=== PATIENT | male | born 1950 | race Caucasian/White ===

== ENCOUNTER 2017-01-11 23:42 | Emergency (ER) ==
--- NOTE | 2017-01-12 00:39 | PROVIDER DOCUMENTATION ---
HPI-General Adult - General Chief Complaint: Abdominal Pain Stated Complaint: AND PAIN Time Seen by Provider: 01/12/17 00:20 Source: patient Allergies/Adverse Reactions: Patient Allergies Allergy/AdvReac Type Severity Reaction Status Date / Time adhesive tape Allergy ITCHING Verified 01/12/17 01:06 Home Medications: Home Medication List Medication Instructions Recorded Confirmed Last Taken Type Ondansetron [Zofran] 4 mg PO Q6H PRN PRN #20 tablet 01/12/17 Unknown Rx Pantoprazole Sodium [Protonix] 40 mg PO DAILY #20 tablet. 01/12/17 Unknown Rx Tramadol [Ultram] 50 mg PO Q8HR #12 tablet 01/12/17 Unknown Rx - History of Present Illness -Gen Adult Nature of Presenting Problems: Pt. is 66 yom that presents with c/o epigastric pain that radiates to his RUQ. Pt. reports he was asleep and was awakened by the pain. Pt. states he has no N/V /D or fever. Pt. reports the pain has moved since his arrival to the ED more to the right side. Pt. reports he still has his GB. Pt. reports he is a daily drinker. Pt. also reports a Hx of SBO. Location of Pain/Injury: reports: abdomen. denies: head, face, mouth, neck, chest, upper extremity, hand(s), back, pelvis, genitalia, lower extremity, feet , upper body, lower body, generalized Pain Radiation: reports: epigastric, RUQ Quality of Pain: reports: aching. denies: burning, cramping, dull, fullness, indigestion, pressure, sharp, stabbing, tearing, throbbing, tightness Severity: reports: moderate. denies: mild, severe Onset/Duration: reports: abrupt, this evening Timing: reports: still present. denies: improving, gone now, resolved prior to arrival, intermittent, constant, changing over time, getting worse Context/Activities at Onset: reports: sleep. denies: recent emotional stress, recent physical stress, recent trauma history, possible bad food, cold exposure , out of country travel Modifying Factors: improves with: nothing Associated Symptoms: reports: other (Epigastric pain). denies: anxiety, arm pain, back/neck pain, chest pain, constipation, cough, diaphoresis, diarrhea, dizziness, EENT symptoms, fatigue, fever/chills, genitourinary problems, headaches, heartburn, joint pain, loss of appetite, malaise, muscle aches, sinus congestion/drainage, nausea, rash, seizure, shortness of breath, sensory/ motor loss, pain with inspiration, swelling/mass in abdomen, syncope, vomiting, weakness, trouble walking Similar Symptoms Previously?: No Recently seen or treated by another doctor?: No Review of Systems - Adult - REVIEW OF SYSTEMS - ADULT Constitutional: reports: see HPI. denies: chills, fever, fatique Eyes: reports: see HPI. denies: discharge, blurred vision, double vision Ears, Nose, Mouth & Throat: reports: see HPI. denies: ear pain, hearing loss, nose pain, loose teeth, mouth/dental pain, throat pain, throat swelling Cardiovascular: reports: see HPI. denies: chest pain, heart murmur, orthopnea, palpitations, syncope Respiratory: reports: see HPI. denies: cough, dyspnea on exertion, pleurisy, shortness of breath, wheezing Gastrointestinal: reports: see HPI, abdominal pain. denies: hematemesis, constipation, difficulty swallowing, frequent heartburn, nausea, rectal bleeding , vomiting Genitourinary: reports: see HPI. denies: dysuria, hematuria, incontinence, urgency Musculoskeletal: reports: see HPI. denies: bone pain, back pain, joint pain, muscle aches, neck pain Integumentary: reports: see HPI. denies: hives, itching, rash, skin thickening Neurological: reports: see HPI. denies: ataxia, headache/migraines, numbness, seizure, tremors Psychiatric: reports: see HPI. denies: anxiety, depression, emotional problems , insomnia, panic attacks, suicidal thoughts Past History - Adult - PAST MEDICAL HISTORY-ADULT Review of Records: reports: Old Records Reviewed, Nursing Assessment Review, Medications Reviewed, Social history reviewed & non-contributory. - IMMUNIZATION STATUS Childhood Immunizations: See Nurse Assessment Flu Vaccine: See Nurse Assessment - FAMILY HISTORY Family History: reviewed, not pertinent - SOCIAL HISTORY Smoking: non-smoker Substance Use: alcohol Alcohol Use Frequency: every day Physical Exam-General - PHYSICAL EXAM-ADULT Initial Vital Signs Reviewed: Yes - CONSTITUTIONAL General Appearance: alert, moderate distress, thin. negative: obese, anxious, lethargic, slow to respond, obtunded, combative - EYES Eyes: PERRL/EOMI, pink conjunctivae. negative: conjuctival exudate, scleral icterus, subconjunctival hemorrhage - HEAD, EARS, NOSE, MOUTH & THROAT HENMT: normocephalic/atraumatic, moist mucous membranes. negative: angioedema, frontal tenderness, maxillary tenderness - NECK Neck: non-tender, full range of motion, supple, normal inspection. negative: lymphadenopathy, trachial deviation, thyromegaly - RESPIRATORY Respiratory: lungs clear, normal breath sounds. negative: crackles, rales, rhonchi, stridor, wheezing - CARDIOVASCULAR Cardiovascular: normal peripheral pulses, regular rate, rhythm, no edema, no JVD , no murmur. negative: extra beats, friction rub, irregularly irregular - CHEST (BREASTS) Chest/Breast: deferred - GASTROINTESTINAL (ABDOMEN) Abdominal Exam: normal bowel sounds, distended, tenderness, Hendrickson's sign ( Positive on the right side). negative: guarding, rigid, rebound, hernia, mass, hepatomegaly, spleenomegaly - GENITOURINARY Male Genitalia: deferred Rectal Exam: deferred Hemoccult Exam: deferred - LYMPHATIC Lymphatic: no adenopathy. negative: axilla node tender, cervical node tenderness - MUSCULOSKELETAL Back Exam: normal inspection, no CVA tenderness, no vertebral tenderness. negative: ecchymosis, swelling, vertebral tenderness Extremity: normal range of motion, non-tender, normal gait, normal inspection. negative: deformity, erythema, inflammation, swelling, tenderness Peripheral Pulses: radial (R): 2+, radial (L): 2+ - SKIN Integumentary: normal color, normal turgor, warm/dry. negative: cyanosis, diaphoresis, ecchymosis, erythema, jaundice, mottled, pallor, petechiae, purpura , rash, swelling, tenderness - NEUROLOGIC Neurologic: grossly normal, no motor/sensory deficits. negative: aphasia, facial droop, focal weakness, motor weakness, sensory deficit - PSYCHIATRIC Psych/Mental Status: normal mood/affect, normal thought content, normal thought process, oriented x 3. negative: anxious, paranoid, tearful Progress - PLAN OF CARE/RESULTS Progress/Plan/Lab Results: Discussed patient with Dr. Vyas. Discussed results and plan of care with patient. Patient agrees with plan and verbalizes understanding. Vital Signs Temp Pulse Resp BP Pulse Ox 01/12/17 01:48 97.6 F 72 20 144/92 97 01/11/17 23:44 98.4 F 82 16 154/85 99 adhesive tape Allergy (Verified 01/12/17 01:06) ITCHING No Home Medications 01/12/17 Dietary Diet NPO Start Sat Jan 12 2344 I&O 01/10/17 01/11/17 01/12/17 06:59 06:59 06:59 Output Total 30 Balance -30 Laboratory 01/12/17 01/12/17 01/12/17 Unknown Unknown 00:21 WBC Cancelled RBC Cancelled Hgb Cancelled Hct Cancelled MCV Cancelled MCH Cancelled MCHC Cancelled RDW Std Deviation Cancelled Plt Count Cancelled MPV Cancelled Immature Gran % (Auto) Cancelled Neut % (Auto) Cancelled Lymph % (Auto) Cancelled [place] % (Auto) Cancelled Eos % (Auto) Cancelled Baso % (Auto) Cancelled Immature Gran # (Auto) Cancelled Neut # (Auto) Cancelled Lymph # (Auto) Cancelled [place] # (Auto) Cancelled Eos # (Auto) Cancelled Baso # (Auto) Cancelled Corrected WBC (Man) Cancelled Sodium Cancelled Potassium Cancelled Chloride Cancelled Carbon Dioxide Cancelled Anion Gap Cancelled BUN Cancelled Creatinine Cancelled Estimated GFR/1.73 m2 Cancelled BUN/Creatinine Ratio Cancelled Glucose Cancelled Calculated Osmolality Cancelled Calcium Cancelled Total Bilirubin Cancelled AST Cancelled ALT Cancelled Alkaline Phosphatase Cancelled Troponin T Total Protein Cancelled Albumin Cancelled Globulin Cancelled Albumin/Globulin Ratio Cancelled Amylase Cancelled Lipase Cancelled Urine Source CLEAN CATCH Urine Color YELLOW Urine Turbidity CLEAR Urine pH 6.5 Ur Specific Dewitt 1.022 Urine Protein NEGATIVE Ur Glucose (Stick) NEGATIVE Ur Ketones (Stick) NEGATIVE Urine Blood TRACE A Urine Nitrite NEGATIVE Urine Bilirubin NEGATIVE Urobilinogen Dipstick NORMAL Urine Leukocytes NEGATIVE Urine WBC (Auto) <10 Urine RBC (Auto) <10 U Epithel Cells (Auto) <10 Urine Bacteria (Auto) NEGATIVE 01/11/17 01/11/17 01/11/17 23:58 23:58 23:58 WBC 6.27 RBC 4.93 Hgb 15.7 Hct 45.6 MCV 92.5 MCH 31.8 H MCHC 34.4 RDW Std Deviation 13.1 Plt Count 217 MPV 10.4 Immature Gran % (Auto) 0.3 Neut % (Auto) 54.6 Lymph % (Auto) 31.3 [place] % (Auto) 10.0 H Eos % (Auto) 3.5 Baso % (Auto) 0.3 Immature Gran # (Auto) 0.02 Neut # (Auto) 3.42 Lymph # (Auto) 1.96 [place] # (Auto) 0.63 H Eos # (Auto) 0.22 Baso # (Auto) 0.02 Corrected WBC (Man) Sodium 142 Potassium 4.0 Chloride 107 Carbon Dioxide 22 L Anion Gap 13 BUN 16 Creatinine 0.9 Estimated GFR/1.73 m2 BUN/Creatinine Ratio 18 Glucose 119 H Calculated Osmolality 285 Calcium 8.8 Total Bilirubin 0.88 AST 29 ALT 22 Alkaline Phosphatase 85 Troponin T < 0.010 Total Protein 6.7 Albumin 3.9 Globulin 2.8 Albumin/Globulin Ratio 1.4 Amylase 64 Lipase 68 H Urine Source Urine Color Urine Turbidity Urine pH Ur Specific Dewitt Urine Protein Ur Glucose (Stick) Ur Ketones (Stick) Urine Blood Urine Nitrite Urine Bilirubin Urobilinogen Dipstick Urine Leukocytes Urine WBC (Auto) Urine RBC (Auto) U Epithel Cells (Auto) Urine Bacteria (Auto) Orders Category Date Time Status Saline Loc DIRECTED Care 01/11/17 23:44 Active NPO Diet 01/11/17 23:[address] ABD/PELVIS W/ IV CONT ONLY [CT] Stat Exams 01/12/17 01:11 Taken FLAT/UPRIGHT ABD/1 VIEW CHEST [RAD] Stat Exams 01/11/17 23:45 Taken AMYLASE [CHEM] Stat Lab 01/11/17 23:58 Completed CBC WITH ELECTRONIC DIFF [HEME] Stat Lab 01/11/17 23:58 Completed COMPREHENSIVE METABOLIC PANEL [CHEM] Stat Lab 01/11/17 23:58 Completed LIPASE [CHEM] Stat Lab 01/11/17 23:58 Completed TROPONIN T Stat Lab 01/11/17 23:58 Completed URINALYSIS W/POSS RFLX CULT [URINALYSIS] Stat Lab 01/12/17 00:21 Completed Hydromorphone [Dilaudid] Med 01/12/17 01:50 Discontinued 1 mg IV NOW ONE Ondansetron [Zofran] Med 01/12/17 01:50 Discontinued 4 mg IV NOW ONE EKG [EKG] Stat Ther 01/11/17 23:45 Ordered Laboratory Tests 01/11/17 01/11/17 01/11/17 23:58 23:58 23:58 WBC 6.27 RBC 4.93 Hgb 15.7 Hct 45.6 MCV 92.5 MCH 31.8 H MCHC 34.4 RDW Std Deviation 13.1 Plt Count 217 MPV 10.4 Immature Gran % (Auto) 0.3 Neut % (Auto) 54.6 Lymph % (Auto) 31.3 [place] % (Auto) 10.0 H Eos % (Auto) 3.5 Baso % (Auto) 0.3 Immature Gran # (Auto) 0.02 Neut # (Auto) 3.42 Lymph # (Auto) 1.96 [place] # (Auto) 0.63 H Eos # (Auto) 0.22 Baso # (Auto) 0.02 Corrected WBC (Man) Sodium 142 Potassium 4.0 Chloride 107 Carbon Dioxide 22 L Anion Gap 13 BUN 16 Creatinine 0.9 Estimated GFR/1.73 m2 BUN/Creatinine Ratio 18 Glucose 119 H Calculated Osmolality 285 Calcium 8.8 Total Bilirubin 0.88 AST 29 ALT 22 Alkaline Phosphatase 85 Troponin T < 0.010 Total Protein 6.7 Albumin 3.9 Globulin 2.8 Albumin/Globulin Ratio 1.4 Amylase 64 Lipase 68 H Urine Source Urine Color Urine Turbidity Urine pH Ur Specific Dewitt Urine Protein Ur Glucose (Stick) Ur Ketones (Stick) Urine Blood Urine Nitrite Urine Bilirubin Urobilinogen Dipstick Urine Leukocytes Urine WBC (Auto) Urine RBC (Auto) U Epithel Cells (Auto) Urine Bacteria (Auto) 01/12/17 01/12/17 01/12/17 00:21 Unknown Unknown WBC Cancelled RBC Cancelled Hgb Cancelled Hct Cancelled MCV Cancelled MCH Cancelled MCHC Cancelled RDW Std Deviation Cancelled Plt Count Cancelled MPV Cancelled Immature Gran % (Auto) Cancelled Neut % (Auto) Cancelled Lymph % (Auto) Cancelled [place] % (Auto) Cancelled Eos % (Auto) Cancelled Baso % (Auto) Cancelled Immature Gran # (Auto) Cancelled Neut # (Auto) Cancelled Lymph # (Auto) Cancelled [place] # (Auto) Cancelled Eos # (Auto) Cancelled Baso # (Auto) Cancelled Corrected WBC (Man) Cancelled Sodium Cancelled Potassium Cancelled Chloride Cancelled Carbon Dioxide Cancelled Anion Gap Cancelled BUN Cancelled Creatinine Cancelled Estimated GFR/1.73 m2 Cancelled BUN/Creatinine Ratio Cancelled Glucose Cancelled Calculated Osmolality Cancelled Calcium Cancelled Total Bilirubin Cancelled AST Cancelled ALT Cancelled Alkaline Phosphatase Cancelled Troponin T Total Protein Cancelled Albumin Cancelled Globulin Cancelled Albumin/Globulin Ratio Cancelled Amylase Cancelled Lipase Cancelled Urine Source CLEAN CATCH Urine Color YELLOW Urine Turbidity CLEAR Urine pH 6.5 Ur Specific Dewitt 1.022 Urine Protein NEGATIVE Ur Glucose (Stick) NEGATIVE Ur Ketones (Stick) NEGATIVE Urine Blood TRACE A Urine Nitrite NEGATIVE Urine Bilirubin NEGATIVE Urobilinogen Dipstick NORMAL Urine Leukocytes NEGATIVE Urine WBC (Auto) <10 Urine RBC (Auto) <10 U Epithel Cells (Auto) <10 Urine Bacteria (Auto) NEGATIVE - XRAY 1 XRAY Study: Chest (NAD), Abdomen (Non-specific abdomen) - CT/MRI 1 CT Study: Abdomen, Pelvis CT Results: No acute abnormality or definite cause for symptoms ([place]) Departure - Departure Time of Disposition Order: 02:03 DIAGNOSIS: Abdominal pain Qualifiers: Abdominal location: right upper quadrant Qualified Code(s): R10.11 - Right upper quadrant pain Constipation Qualifiers: Constipation type: unspecified constipation type Qualified Code(s): K59.00 - Constipation, unspecified Disposition: HOME 01 Certified Medical Emergency: Emergent Condition: Stable Additional Instructions: Follow up with primary care physician Follow up with gastroenterology Take over the counter magnesium citrate and gas x Take medications as directed Return to ED for any concerns or worsening of symptoms ED Follow Up Instructions: You have been treated by a care provider in the Emergency Department. These instructions are being provided to you so you can have an understanding of how to care for yourself upon discharge. Upon discharge from the Emergency Department, you are responsible for making arrangements for follow-up care by a physician of your choice. Take all prescribed medications as directed. Return to the Emergency Department immediately for any new or worsening symptoms. You may call the Physician Referral phone number at [phone] to obtain a list of Physicians who are taking new patients. Prescriptions: Pantoprazole Sodium [Protonix] 40 mg PO DAILY #20 tablet. Tramadol [Ultram] 50 mg PO Q8HR #12 tablet Ondansetron [Zofran] 4 mg PO Q6H PRN PRN #20 tablet PRN Reason: Nausea Referrals: Chase Rene MD [Primary Care Provider] - Trevor Lee MD [STAFF PHYSICIAN] - Attestation - Physician/ REGINA Attestation Patient care was provided by Advanced Practice Provider:: Yes Advanced Practice Provider:: Rome Torrez Advanced Practice Provider documentation review:: The Mid-level provider documentation, treatment plan and medical decision making was reviewed by the physician who agrees with all treatment and medical decision making by the MLP.
[2017-01-12 00:48] LABS: MANUAL DIFF NEEDED? NO
[2017-01-12 00:51] LABS: URINE CULTURE NEEDED? NO; URINE MICRO REVIEW NEEDED? NO; URINE SOURCE CLEAN CATCH
[2017-01-12 00:57] LABS: SODIUM 142 mmol/L (136-145)
[2017-01-12 00:58] LABS: AGAP 13; BUN 16 mg/dL (8-22); CALCIUM 8.8 mg/dL (8.8-10.2); CHLORIDE 107 mmol/L (98-107); COSMO 285; TCO2 22 mmol/L (25-35); TOTAL BILIRUBIN 0.88 mg/dL (0.20-1.00)
[2017-01-12 00:59] LABS: ALBUMIN 3.9 g/dL (3.5-5.0); ALKALINE PHOSPHATASE 85 U/L (32-122); GOT 29 U/L (10-34); GPT 22 U/L (10-44); TOTAL PROTEIN 6.7 g/dL (6.3-8.3)
[2017-01-12 01:00] LABS: AMYLASE 64 U/L (20-200); LIPASE 68 U/L (13-60)
[2017-01-12 01:02] LABS: BASO% 0.3 % (0.0-0.8); EOS# 0.22 X1000 (0.0-0.7); EOS% 3.5 % (0.0-10.0); HEMATOCRIT 45.6 % (42.0-52.0); HEMOGLOBIN 15.7 g/dL (14.0-18.0); IMM GRAN# 0.02 X1000 (0.0-0.04); IMM GRAN% 0.3 % (0.0-0.5); LYMPH# 1.96 X1000 (1.2-3.4); LYMPH% 31.3 % (20.5-51.1); MCH 31.8 PG (27-31); MCHC 34.4 g/dL (33-37); MCV 92.5 FL (81-99); MONO# 0.63 X1000 (0.11-0.59); MPV 10.4 FL (7.4-10.4); NEUT% 54.6 % (42.2-75.2); PLT 217 X1000 (130-400); RBC 4.93 XMIL (4.7-6.1)
--- NOTE | 2017-01-12 01:34 | ED EKG INTERP ---
EKG Interpretation - EKG Time of EKG reading by physician:: 01:07 EKG Read and Signed by:: Misael Vyas EKG Interpretation (*Must complete 3 of following elements*): Normal Rate: 71 Rhythm: NSR Attestation - Scribe Verification/Attestation Scribe:: Rod Hoskins Acting as Scribe for:: Misael Vyas Scribe documention review:: This chart was documented by a scribe and accurately reflects the service the provider performed and the decisions made by the provider.
[2017-01-12 01:39] LABS: BILIRUBIN URINE NEGATIVE (NEGATIVE); BLOOD URINE TRACE (NEGATIVE); COLOR YELLOW; GLUCOSE URINE NEGATIVE (NEGATIVE); LEUKOCYTES URINE NEGATIVE (NEGATIVE); NITRITE URINE NEGATIVE (NEGATIVE); PH URINE 6.5; PROTEIN URINE NEGATIVE (NEGATIVE); SP GRAVITY URINE 1.022; TURBIDITY URINE CLEAR (CLEAR); UR EPITHELIAL CELLS <10 /HPF (<10); URINE BACTERIA NEGATIVE /HPF; URINE RBC <10 /HPF (<10); URINE WBC <10 /HPF (<10); UROBILINOGEN URINE NORMAL (NORMAL)
[2017-01-12 01:49] VITALS: BP 144/92
[2017-01-12] MEDS ORDERED: ZOFRAN IV ONE (01:50)
[2017-01-12] MEDS ORDERED: DILAUDID IV ONE (01:50)
--- NOTE | 2017-01-12 06:17 | EKG Report ---
Test Performed on : 01/12/2017 01:07:33 AM Test Reason : CP Blood Pressure : / mmHG Vent. Rate : 071 BPM Atrial Rate : 071 BPM P-R Int : 140 ms QRS Dur : 094 ms QT Int : 404 ms P-R-T Axes : 027 051 036 degrees QTc Int : 439 ms Normal sinus rhythm. Normal ECG No previous ECGs available Unconfirmed Result
--- NOTE | 2017-01-12 11:07 | Diag Imaging Result Document ---
PROCEDURE NAME: CT ABD/PELVIS W/ IV CONT ONLY - 01/12/2017 CT ABDOMEN AND PELVIS WITH IV CONTRAST: COMPARISON: 06/13/2016. FINDINGS: There is mild atelectasis and/or scarring at the lung bases. There is a tiny stable hypodensity involving the anterior right hepatic lobe that likely represents a tiny cyst. There is a stable 3-mm intermediate density focus arising from the cortex of the right kidney. Its density is only slightly higher than that of a simple cyst. It probably represents a cyst containing blood products or proteinaceous debris. Consider correlation with renal ultrasound to assure that it is cystic. There is extensive uncomplicated diverticulosis coli mainly involving the sigmoid colon. There is beam-hardening artifact related to bilateral hip arthroplasty which somewhat obscures the pelvis. There is no evidence of hydronephrosis. No focal inflammatory changes, free abdominal gas, or free fluid is appreciated. There is no evidence of bowel obstruction. The remainder of the solid viscera of the abdomen and pelvis and the remainder of the GI tract is essentially unremarkable. IMPRESSION: 1. Intermediate-density nodule arising from the right kidney that is stable and probably represents a benign hemorrhagic or proteinaceous cyst. Consider evaluation with renal ultrasound, however. 2. Uncomplicated diverticulosis coli. 3. Other incidental/nonacute findings detailed above. No definite acute pathology.
--- NOTE | 2017-01-12 13:17 | Diag Imaging Result Document ---
PROCEDURE NAME: FLAT/UPRIGHT ABD/1 VIEW CHEST - 01/11/2017 PLAIN RADIOGRAPH OF THE CHEST AND ABDOMEN, 3 VIEWS: COMPARISON: None available. FINDINGS: There are unremarkable bowel gas and stool patterns. There is no obstructive pattern. There is no evidence of large-volume free abdominal gas. Inspiration is suboptimal. The lungs are grossly clear. There is no definite pleural fluid collection. Cardiac silhouette is unremarkable. IMPRESSION: No definite acute pathology by plain radiograph.
== END 2017-01-12 02:25 | disposition home or self-care (01) ==
LOC: ED 23:42
DX: R10.11 Right upper quadrant pain (principal); K59.00 Constipation, unspecified; R10.13 Epigastric pain
CPT/HCPCS: 74022; 74177; 80053; 81001; 82150; 83690; 84484; 85025; 93005; 96374; 96375; J1170; J2405; Q9967

== ENCOUNTER 2017-02-18 18:23 | Inpatient (IN) ==
[2017-02-18] MEDS ORDERED: NS 1,000 ML IV ONE (18:51)
[2017-02-18] MEDS ORDERED: ZOFRAN IV PRN (18:51)
[2017-02-18] MEDS ORDERED: ULTRAM PO PRN (18:51)
[2017-02-18] MEDS ORDERED: ROCEPHIN 1 GM/NS 1 GM/50 ML IVPB IV SCH (19:00)
--- NOTE | 2017-02-18 20:53 | HISTORY AND PHYSICAL ---
CHIEF COMPLAINT: Cough, weight loss, weakness. HISTORY OF PRESENT ILLNESS: This is a 66-year-old, white male that underwent a laparoscopic cholecystectomy on 01/27/2017 at [facility] uneventfully. He had a fairly good postoperative course for several days but then he slowly began to decline with increasing weakness, nausea and bloating sensation. He was evaluated by his surgeon on [address] Leonardo Rene where laboratory and x-rays were obtained. Lipase on 01/22/2017 was 29, total bilirubin on 01/22 was 0.68, albumin 4.1, alkaline phosphatase 89, GOT 18, GPT 20. Sodium was 140, potassium 4.6, BUN and creatinine 14 and 1.0 on 01/22/2017. White blood cell count was 4.83, hemoglobin and hematocrit 15 and 44, platelets were 218 (post-treatment with Bactrim antibiotic). INR on 01/22/2017 was 1.01. Prior on 02/07/2017 after patient followed up still not feeling totally better, sodium was 138, potassium 4.0, BUN and creatinine were 15 and 1.6 respectively. Total bilirubin was 1.9, albumin was 3.3, alkaline phosphatase was 160, GOT was 42 and GPT was 59. White blood cell count was 19.13, hemoglobin and hematocrit 14 and 42. Chest x-ray was obtained which revealed no acute findings. The patient was placed on oral Bactrim to cover for what appeared to be urinary tract issues. Previous lipase level was 20. Over the weekend the patient continued to just not feel well and began to decline with anorexia, nausea and generalized bloating. He had no actual fever or chills. He presented to my office on 02/18/2017 for further evaluation. In view of his overall decline in that he had lost from 215 pounds preoperatively to 194 pounds since surgery and his overall generalized weakened condition, he will be admitted for further evaluation and treatment. Patient's overall condition was discussed with his surgeon, Dr. Leonardo Rene. PAST SURGERY HISTORY: He had appendicitis and appendectomy in 1955. He had rotator cuff surgery in 1998. He had right and left hip replacement by Dr. Bernard in 2006. MEDICAL ILLNESSES: He has been fairly healthy. MEDICATIONS: He takes no medications. ALLERGIES: No allergies. SOCIAL HISTORY: He served in the [employer] from 1966 to 1970 in the [employer]. He was on a destroyer. He stopped smoking in approximately 2007. He drinks regular alcohol, beer probably 5 times per week, rarely more than 5 drinks per occasion. FAMILY HISTORY: Mother is still living with rheumatoid arthritis in her 80's. One sister age 65 obese. He has 2 children, 1 in the and 1 is a nurse in the [place] area. Retired from [employer]. PHYSICAL EXAMINATION: GENERAL: Shows a well-developed, white male, who does look pale and weak. VITAL SIGNS: Temperature 99 degrees oral, pulse 106, blood pressure 120/84, weight 194 pounds, height 68.5 inches, respirations 20 and nonlabored, O2 saturation 97%. HEENT: TMs are clear. Pupils are equally round and reactive. Oropharynx is slightly dry. NECK: Supple. LUNGS: Show clear breath sounds with no wheezes, rales, rhonchi. HEART: With a slightly tachycardic rate. ABDOMEN: Distended with active bowel sounds. Very tympanitic to percussion. He has no tenderness to palpation or percussion. Good femoral pulses. No bruits. GENITOURINARY: Normal male. Bilaterally descended testicles. MUSCULOSKELETAL: Shows well-healed surgical scars on both subtrochanteric areas. He has no peripheral edema, clubbing or cyanosis. He has no pain in the calves. He has negative Homans signs bilaterally. CURRENT LABORATORY DATA: Sodium was 136, potassium was 4.26, BUN and creatinine 12 and 1.2, glucose 117, amylase 47, alkaline phosphatase 224, GOT 56, GPT 79, total protein 7.8, albumin 3.8, white blood cell count 14.1, hemoglobin and hematocrit 14 and 43, platelets 384,000, 87 segmented neutrophils, 10 lymphocytes, normal morphology. Urinalysis: Specific gravity 1.20, 1+ protein, 1+ bilirubin, 2+ occult blood, 20-30 RBCs, 1-5 WBCs, 2+ bacteria, 3+ mucus. Chest x-ray shows an area of atelectasis posterior on the lateral view. No acute infiltrate, no fluid, no effusion. IMPRESSION: 1. A 66-year-old, white male, now approximately 3 weeks postoperative from laparoscopic cholecystectomy with no unusual postoperative events until approximately 3-4 days postoperative when he began just having a general decline in his appetite with malaise and not feeling well. He now appears to have a slight leukocytosis with primarily polys. He also has had a slight rise in his alkaline phosphatase, GOT and GPT. He certainly could have some generalized dehydration based on his overall appearance and condition. 2. He has a low-grade fever of 99 with a pulse rate of 106. Certainly he could have an impending gram-negative sepsis. 3. Hematuria on his urinalysis, mildly dehydrated, 2+ bacteria in his urine consistent with possible UTI. PLAN: 1. We will admit to [facility] with the belief of impending sepsis. 2. Cultures, blood and urine. 3. We will start IV Rocephin and Zosyn. 4. I have discussed with Dr. Leonardo Rene and will obtain CT of the chest with and without contrast, CT of abdomen and pelvis with IV and oral contrast. 5. We will hydrate and give him a bolus of normal saline followed by 75 mL/h. 6. Depending on the outcome of the CT scans, certainly might need to do a CT cholangiogram or MR cholangiogram to rule out common duct obstruction perhaps. 7. I have discussed this with patient and his daughter, Yadira, in detail. I have also discussed this with Dr. Leonardo Rene. 8. We will also consult Dr. Sarbjit Saucedo for Infectious Disease opinion. 9. We will obtain and echocardiogram to rule out perhaps an endocarditis of some sort. cc: Chase Rene MD
[2017-02-18] MEDS: KLONOPIN PO SCH (22:12)
[2017-02-18] MEDS: PROTONIX IV SCH (22:23)
[2017-02-18] MEDS: LOVENOX SUBQ SCH (22:23)
[2017-02-18] MEDS: SODIUM CHLORIDE 0.9% INJ SCH (22:23)
[2017-02-18] MEDS: NS 1,000 ML IV PRN (22:28)
--- NOTE | 2017-02-18 23:32 | CONSULTATION ---
DATE OF CONSULTATION: 02/18/2017 HISTORY OF PRESENT ILLNESS: This is a 66-year-old male, well-known to me, who is status post laparoscopic cholecystectomy for concerns of gallbladder polyp, but was found to have stones and some chronic changes. Surgery was uneventful. He went home the same day. He was seen back at a week, with some vague subjective fevers, general malaise. We checked labs on him, had slight elevation in his creatinine to 1.6, but with baseline around 1. Bilirubin was mildly elevated, as were transaminases and alkaline phosphatase, not unexpected from his recent cholecystectomy. I essentially observed him. He did have a marginally dirty urinalysis. Started him on antibiotics. Clinically, somewhat improved. Was seen a week later. Repeated labs. Creatinine was down. White count had normalized. LFTs were near normal, with only a slight elevation in his alkaline phosphatase. He was seen by Chase Rene today, and was again feeling poorly, mildly tachycardic, a temperature of 99 degrees, and just not feeling well after stopping his p.o. antibiotics. As such, he was admitted. His creatinine was down to 1.2. He has had decreased appetite, but no vomiting. Denies any abdominal pain. Having flatus and belching quite a lot. Feels bloated, but otherwise seems to be having normal bowel function. Denies any abdominal pain. PAST MEDICAL HISTORY: No real chronic illnesses. PAST SURGICAL HISTORY: Appendicitis, rotator cuff, left hip. REVIEW OF SYSTEMS: Ten-point negative, except for what is mentioned in HPI. SOCIAL HISTORY: Quit smoking in 2007. Does drink beer regularly. FAMILY HISTORY: noncontributory PHYSICAL EXAM Gen: alert no acute distress but appears to feel poorly HEENT: no scleral icterus CV: Regular rate and rhythm Pulm: no increased work of breathing on room air ABD: soft nontender nondistended no peritoneal signs Integument: warm dry no jaundice Musculoskeletal: no atrophy normal strength Neurologic: alert and oriented Psych: flat affect LABORATORY STUDIES: Labs were obtained at Dr. Rene's office, but lactate is 1.4, with an amylase of 48 he had tonight. His creatinine per report was down to 1.2. White count was in the low teens. Bilirubin was upper limits of normal. Urinalysis was with blood. Chest x-ray per report showed some atelectasis, and abdomen showed a nonspecific bowel gas pattern. ASSESSMENT AND PLAN: A 66-year-old male, status post laparoscopic cholecystectomy, with either an early sepsis or failure to thrive-type picture. I suspect dehydration is a major component here. He had been given a liter of fluid, and is on a maintenance rate currently. He is on antibiotics. Cultures are pending, with plans for repeat labs in the morning. Will plan to scan his chest, abdomen, and pelvis tomorrow. Dr. Rene has also ordered an echocardiogram to evaluate his heart tomorrow as well. Will continue to follow along. Low suspicion for anything acute in his abdomen. CT scan would give us some insight into an occult bile leak, and repeat LFTs in the morning would help clue us in to some other hepatobiliary pathology. If we suspect a retained gallstone, an MRCP would be the next step to evaluate this, but will start CT scan first. We will continue to follow along. cc: MD Chase Hanson MD [facility]
[2017-02-18] MEDS: ZOSYN 3.375 GM/NS 3.375 GM/50 ML IVPB IV SCH (23:45)
[2017-02-19 03:53] LABS: URINE MICRO REVIEW NEEDED? NO; URINE SOURCE CLEAN CATCH
[2017-02-19 03:55] LABS: BILIRUBIN URINE NEGATIVE (NEGATIVE); BLOOD URINE SMALL (NEGATIVE); COLOR YELLOW; GLUCOSE URINE NEGATIVE (NEGATIVE); LEUKOCYTES URINE NEGATIVE (NEGATIVE); NITRITE URINE NEGATIVE (NEGATIVE); PH URINE 5.5; PROTEIN URINE TRACE mg/dL (NEGATIVE); SP GRAVITY URINE 1.019; TURBIDITY URINE CLEAR (CLEAR); UROBILINOGEN URINE 2 mg/dL (NORMAL)
[2017-02-19 03:56] LABS: UR EPITHELIAL CELLS <10 /HPF (<10); URINE BACTERIA NEGATIVE /HPF; URINE RBC <10 /HPF (<10); URINE WBC <10 /HPF (<10)
[2017-02-19 06:25] LABS: MANUAL DIFF NEEDED? NO
[2017-02-19] MEDS: ZOSYN 3.375 GM/NS 3.375 GM/50 ML IVPB IV SCH ×4 (06:29→21:35)
[2017-02-19 06:44] LABS: BASO% 0.1 % (0.0-0.8); EOS# 0.03 X1000 (0.0-0.7); EOS% 0.2 % (0.0-10.0); HEMATOCRIT 39.9 % (42.0-52.0); HEMOGLOBIN 13.1 g/dL (14.0-18.0); IMM GRAN# 0.04 X1000 (0.0-0.04); IMM GRAN% 0.2 % (0.0-0.5); LYMPH# 1.29 X1000 (1.2-3.4); MCHC 32.8 g/dL (33-37); MCV 94.3 FL (81-99); MONO% 7.5 % (1.7-9.3); MPV 9.7 FL (7.4-10.4); PLT 321 X1000 (130-400); RBC 4.23 XMIL (4.7-6.1)
[2017-02-19 06:46] LABS: INR 1.2; PROTIME 12.7 Seconds (9.2-11.7)
[2017-02-19 07:07] LABS: AGAP 21; ALBUMIN 2.9 g/dL (3.5-5.0); ALKALINE PHOSPHATASE 188 U/L (32-122); BUN 11 mg/dL (8-22); CALCIUM 8.8 mg/dL (8.8-10.2); CHLORIDE 94 mmol/L (98-107); COSMO 273; GOT 45 U/L (10-34); GPT 59 U/L (10-44); LIPASE 17 U/L (13-60); MAGNESIUM 1.9 mg/dL (1.5-2.7); POTASSIUM 5.5 mmol/L (3.5-5.1); SODIUM 137 mmol/L (136-145); TCO2 22 mmol/L (25-35); TOTAL BILIRUBIN 1.36 mg/dL (0.20-1.00); TOTAL PROTEIN 7.7 g/dL (6.3-8.3)
--- NOTE | 2017-02-19 07:32 | EKG Report ---
Test Performed on : 02/19/2017 06:47:40 AM Test Reason : CP Blood Pressure : / mmHG Vent. Rate : 078 BPM Atrial Rate : 078 BPM P-R Int : 146 ms QRS Dur : 094 ms QT Int : 382 ms P-R-T Axes : 019 049 032 degrees QTc Int : 435 ms Normal sinus rhythm. Normal ECG When compared with ECG of 12-JAN-2017 01:07, No significant change was found Confirmed by Andrés PARIS, Niko Hazel ([id number]) on 02/19/2017 6:38:49 PM
--- NOTE | 2017-02-19 10:39 | PROGRESS NOTE ---
DATE: 02/19/2017 DATE AND TIME: On 02/19/2017 at current time 1000 hours. CHIEF COMPLAINT: None. "Ready to eat". VITAL SIGNS: T-max was 99.9; current temperature is 98.8 degrees. Heart rate 78, respirations 20, blood pressure 108/60. O2 saturation on room air is 96%. Urine output 750 mL. LABORATORY DATA: White blood cell count 16.06. Hemoglobin and hematocrit 13 and 39, platelets 321,000, neutrophils 84%, lymphocytes 8%. Sodium 137, potassium 5.5, BUN 11, creatinine 1.1. CO2 22, total bilirubin 1.36, AST 45, ALT 59, alkaline phosphatase 188, albumin 2.9, amylase 48, lipase 17. Plasma lactate 1.4. RADIOLOGIC DATA: CT scans have been done, but no official report. PHYSICAL EXAMINATION: General: Shows a well-developed white male, laying in bed, responds appropriately to questions. States he is hungry. Lungs: Clear. Heart: With a regular rate and rhythm. Abdomen: Soft, but distended. He has no tenderness to palpation. He has no rebound tenderness. No tenderness to percussion. He does have good bowel sounds. Genitourinary: Normal male. Musculoskeletal: Without edema. There is no calf tenderness. Negative Homans sign. IMPRESSION: 1. A 66-year-old, white male, with failure to thrive following laparoscopic cholecystectomy. He certainly could have an indolent abscess/infection. Will await official report on the CT scans. 2. We will await culture reports on the blood and urine. 3. Liver enzymes today are slightly improved following hydration. 4. White blood cell count is slightly elevated from 14,000 to 16,000. PLAN: 1. Will continue current therapy. I have discussed with Dr. Sarbjit Saucedo as well. The Rocephin will be discontinued. Continue Zosyn. 2. We will continue to follow up with the CT scans. 3. Echocardiogram of the heart is scheduled for later today. 4. We will re-evaluate this evening and discuss with family. cc: Chase Rene MD
[2017-02-19] MEDS: KLONOPIN PO SCH ×2 (10:54→21:35)
--- NOTE | 2017-02-19 11:17 | Diag Imaging Result Document ---
PROCEDURE NAME: ABDOMEN/PELVIS W/CONTRAST - 02/19/2017 CT ABDOMEN AND PELVIS WITH IV AND ORAL CONTRAST: COMPARISON: 01/12/2017. FINDINGS: There is mild subsegmental atelectasis at the left lung base. There has been an interval cholecystectomy. There has been development of hepatic steatosis during the interval. Portions of the liver have become heterogeneous during the interval. There appears to be some degree of periportal edema that has developed. There is heterogeneity at the inferior tip of the right hepatic lobe that is vaguely rounded and masslike and is best seen on the arterial phase. This may simply represent focal hepatic steatosis. Continued surveillance is recommended, however. The intermediate density nodule arising from the right kidney seen on the previous study is stable and probably represents a cyst containing blood products. There is vague mesenteric haziness in the region of the gallbladder fossa and a small amount of fluid. This is probably due to recent surgery. No well-defined loculated abscess is identified. There is nothing that would indicate biliary obstruction or a significant bile leak. The remainder of the solid viscera of the abdomen and pelvis and the remainder of the GI tract is essentially stable as compared to the recent previous study. IMPRESSION: 1. Recent interval cholecystectomy with mild stranding and a small amount of fluid in the gallbladder fossa. This is probably postsurgical. 2. Development of hepatic steatosis and increased heterogeneity involving the liver as compared to the previous study as detailed above.
--- NOTE | 2017-02-19 11:32 | PROGRESS NOTE ---
DATE: 02/19/2017 SUBJECTIVE: Feels a little better, just tired, and generally does not feel well. Denies any abdominal pain. No nausea, vomiting. He is thirsty and hungry this morning. PHYSICAL EXAMINATION: Vital Signs: No fevers overnight. Temperature is 98.8 degrees, pulse 78, blood pressure 108/60, oxygen saturation is 96% on room air. General: He is alert, no acute distress. HEENT: No scleral icterus. Cardiovascular: Normal rate, regular rhythm. Pulmonary: On room air. Integumentary: Otherwise warm and dry and I do not see any jaundice. LABORATORY DATA: Labs reviewed. His white count this morning remains elevated at 16, hematocrit 39, creatinine is down to 1.1. Potassium mildly elevated at 5.5, bilirubin is mildly elevated at 1.36. AST 45, ALT 59, alkaline phosphatase 188. His creatinine is down to 1.1. Albumin is 2.9 and that is low. Urinalysis with trace protein, small blood, 2 urobilinogen, but negative for leukocytes and nitrites. CT scan of the chest, abdomen and pelvis shows no real acute findings. Some nonspecific small amount of fluid in the gallbladder fossa. Heterogeneous parenchyma liver but no discrete abscess and it is well perfused throughout. I do not see a bowel obstruction. I do not see any free air. I do not see any obvious pneumonia on his CT of the chest. ASSESSMENT/PLAN: A 75-year-old male with a failure to thrive type picture and dehydration after a cholecystectomy several weeks ago. Gradually improving. His labs look a little bit better. White count still elevated. He is on antibiotics and cultures are pending. Dr. Saucedo is following as well. Continue to follow along and I do not see any evidence of bile leak or distal bile duct obstruction on his CT scan. I do not see any liver abscess or other acute intra- abdominal pathology. We will continue to follow along. cc: MD Chase Hanson MD
[2017-02-19] MEDS: NS 1,000 ML IV PRN (13:50)
--- NOTE | 2017-02-19 13:57 | CONSULTATION ---
DATE OF CONSULTATION: 02/19/2017 CONCLUSION: The patient had laparoscopic cholecystectomy. It went quite well. Approximately 5 days after that, the patient began having some fever and chills. He also has had upper abdominal pain and difficulty getting down food. He has lost approximately 22 pounds. It should be noted he has a leukocytosis. His liver function studies are normal and his amylase and lipase are normal. His chest x-ray did not show any evidence of pneumonia, and his urinalysis did not show any white cells or bacteria. I think the patient has a cholangitis, even though on physical exam he really is not tender in his abdomen. RECOMMENDATIONS: I agree with the decision to treat the patient with Zosyn. I have discontinued Rocephin. DISCUSSION: As mentioned above, the patient approximately 5 days after having laparoscopic cholecystectomy had some shaking chills and fever, early satiety and upper abdominal pain. He has lost approximately 22 pounds. He has a CT scan that was done today. It showed diverticula and a fatty liver, but no abscess. The patient had a chest x-ray in Dr. Rene's office which showed no evidence of pneumonia. His laboratory studies show a CBC with a white count of 16,060, hemoglobin 13.1, and platelet count 321,000. Creatinine is 1.1. GFR is greater than 60. The liver function studies are elevated with the alkaline phosphatase being 188. Amylase and lipase are normal. Urinalysis showed no bacteria or white cells. Blood and urine cultures are pending. PAST MEDICAL HISTORY/REVIEW OF SYSTEMS: Eyes and ears: He denies difficulty hearing or seeing. Respiratory: No cough or shortness of breath. Cardiac: No chest pain or palpitations. GI: As mentioned above, the patient has early satiety and he has been having some upper abdominal pain. He has also lost 22 pounds. Genitourinary: No dysuria or flank pain. Endocrine: No history of diabetes or thyroid disease. Neurologic: No seizures or motor or sensory loss. PREVIOUS HOSPITALIZATIONS AND OPERATIONS: He has had appendectomy for appendicitis. He has had a rotator cuff surgery repair. He has had bilateral hip replacements. MEDICAL DISEASES: Negative for diabetes or hypertension. He is status post laparoscopic cholecystectomy. INFECTIOUS DISEASE HISTORY: Negative for pneumonia and UTI. FAMILY HISTORY: Positive for rheumatoid arthritis and obesity. PHYSICAL EXAMINATION: Vital Signs: Temperature is 98.8 degrees, pulse 78, respirations 20, blood pressure 108/60. General: This is a somewhat ill-appearing, elderly male. He is in no acute distress. Head, eyes, ears, nose, and throat: He can hear my spoken words. He can see near objects. Examination of the mouth showed no white masses. Neck: No meningismus. Lungs: Clear to auscultation. Cardiovascular: Heart rate is regular. The legs were not swollen. Peripheral pulses are palpable. Abdomen: The laparoscopic incisions are not erythematous or draining. The abdomen was not tender. Bowel sounds were present. Neurologic: Patient is awake. He can move his extremities. His sensation is intact to touch. His memory, as regarding his medical history seemed intact. There was no tremor. Integument: No rash noted. Thank you for the consult. cc: MD Chase Yeh MD
--- NOTE | 2017-02-19 19:28 | ECHO REPORT ---
ORDER DATE: 02/19/2017 INTERPRETING PHYSICIAN: Dr. Guevara CLINICAL INDICATIONS: [id number]-old male, cough, weakness, weight loss. M-MODE MEASUREMENTS: Right ventricle: 2.7 cm. Left ventricle end diastole: 4.2 cm. Left ventricle end systole: 2.6 cm. Posterior wall: 0.8 cm. Interventricular septum: 0.9 cm. Left atrium: 4.8 cm. Aortic root: 4.0 cm. SUMMARY OF 2-DIMENSIONAL IMAGING: Left ventricular function is normal. Ejection fraction is estimated at 55%. The left ventricular chamber appears to be moderately enlarged. Right ventricle appears to be normal. The left atrium appears to be mildly enlarged. The aortic valve looks normal. Color flow mapping unremarkable. Mitral valve looks normal. Color flow mapping indicates trace regurgitation. Pulse wave Doppler of mitral inflow is normal. Tissue Doppler of septal and lateral mitral annulus averages 9 cm. There is no diastolic dysfunction. Pulmonary venous flow appears to be normal. Pulmonic valve looks normal. Color flow mapping unremarkable. Tricuspid valve looks normal. Color flow mapping shows a mild degree of regurgitation. Pulmonary pressure appears to be in the range of 41 to 46 mmHg. There is no pericardial effusion, masses, or thrombus. SUMMARY: This study showed: 1. Normal left ventricular systolic function with moderately enlarged left ventricle. 2. Normal valvular structures. 3. No diastolic dysfunction. 4. Mild elevation of pulmonary pressure estimated to be in the range of 41 to 46 mmHg. Clinical correlation is recommended. cc: MD Chase Benítez MD
[2017-02-19] MEDS ORDERED: SALINE LOCK IV FLUID XX ONE (19:56)
[2017-02-19] MEDS: PROTONIX IV SCH (21:36)
[2017-02-19] MEDS: SODIUM CHLORIDE 0.9% INJ SCH (21:36)
[2017-02-19] MEDS: LOVENOX SUBQ SCH (21:36)
[2017-02-20] MEDS: ZOSYN 3.375 GM/NS 3.375 GM/50 ML IVPB IV SCH ×3 (03:38→08:51)
[2017-02-20 06:33] LABS: MANUAL DIFF NEEDED? NO
[2017-02-20 06:39] LABS: BASO% 0.1 % (0.0-0.8); EOS# 0.05 X1000 (0.0-0.7); EOS% 0.5 % (0.0-10.0); HEMATOCRIT 34.9 % (42.0-52.0); HEMOGLOBIN 11.6 g/dL (14.0-18.0); IMM GRAN# 0.03 X1000 (0.0-0.04); IMM GRAN% 0.3 % (0.0-0.5); LYMPH# 1.13 X1000 (1.2-3.4); MCH 31.1 PG (27-31); MCHC 33.2 g/dL (33-37); MCV 93.6 FL (81-99); MONO# 0.88 X1000 (0.11-0.59); MONO% 8.6 % (1.7-9.3); MPV 9.6 FL (7.4-10.4); NEUT% 79.5 % (42.2-75.2); PLT 277 X1000 (130-400); RBC 3.73 XMIL (4.7-6.1)
[2017-02-20 07:03] LABS: AGAP 11; ALBUMIN 2.5 g/dL (3.5-5.0); ALKALINE PHOSPHATASE 160 U/L (32-122); BUN 10 mg/dL (8-22); CALCIUM 8.4 mg/dL (8.8-10.2); CHLORIDE 102 mmol/L (98-107); COSMO 275; GOT 29 U/L (10-34); GPT 48 U/L (10-44); POTASSIUM 3.6 mmol/L (3.5-5.1); SODIUM 138 mmol/L (136-145); TCO2 25 mmol/L (25-35); TOTAL BILIRUBIN 1.32 mg/dL (0.20-1.00); TOTAL PROTEIN 6.5 g/dL (6.3-8.3)
--- NOTE | 2017-02-20 08:23 | Diag Imaging Result Document ---
PROCEDURE NAME: CT THORAX W/CONTRAST - 02/20/2017 CT CHEST WITH INTRAVENOUS CONTRAST, 02/20/2017: A CT dose reduction protocol was used. COMPARISON: CT abdomen and pelvis 02/19/2017. FINDINGS: There is some stable linear atelectasis in the left lung base. No new or focal infiltrates otherwise. No masses or nodules. Heart and great vessels are normal. No adenopathy. Bony structures are intact. IMPRESSION: Stable scattered linear atelectasis in the left lung base. No suspicious infiltrates. [facility]
[2017-02-20] MEDS: KLONOPIN PO SCH ×2 (08:49→21:24)
--- NOTE | 2017-02-20 12:03 | PROGRESS NOTE ---
DATE: 02/20/2017 PRESENT ILLNESS: The patient is status post laparoscopic cholecystectomy. I think he has a low- grade cholangitis. MEDICATIONS: The patient is on Zosyn. I have changed the dose from 3.375 g IV every 6 hours to 4.5 g every 8 hours in order to facilitate treatment with the antibiotic if the patient goes home on it. PHYSICAL EXAMINATION: Vital Signs: Temperature is 99.1 degrees, pulse 80, respirations 20, blood pressure 145/95. General: This is a somewhat ill-appearing, elderly male. He is in no acute distress. He said he is starting to feel better again. He is eating more, he has passed stool and overall he just feels better. Lungs: Clear to auscultation. Cardiovascular: Regular heart rate. Abdomen: Soft and nontender. Neurologic: Patient is alert. He can move his extremities. There is no tremor. LAB AND X-RAY: The patient[place] [address], hemoglobin 11.6, and platelet count 277,000. Creatinine is 1.1. GFR is greater than 60. Blood and urine cultures are negative. Chest CT scan shows atelectatic changes. ASSESSMENT AND PLAN: As mentioned above, I think the patient has cholangitis. My plan would be to continue Zosyn. COMORBIDITY: Recently had a laparoscopic cholecystectomy. cc: MD Chase Yeh MD
[2017-02-20] MEDS ORDERED: ATIVAN IV ONE (12:33)
--- NOTE | 2017-02-20 13:35 | Diag Imaging Result Document ---
PROCEDURE NAME: MRI ABDOMEN W/O CONTRAST - 02/20/2017 MRI ABDOMEN WITH MRCP: COMPARISON: CT abdomen and pelvis 02/19/2017. FINDINGS: The common bile duct and main pancreatic duct are normal. No abnormal fluid collections. The gallbladder is absent. There are some ill-defined hypodensities at the inferior liver edge. These may be from surgical instrumentation. No mass effect. No adenopathy. Small cysts in the liver and right kidney. Other organs are normal. IMPRESSION: 1. Ill-defined signal abnormalities at the inferior liver edge. These may be from surgical instrumentation. Correlate clinically. Followup recommended. 2. Normal exam of the pancreaticobiliary collecting system.
[2017-02-20] MEDS: ZOSYN 4.5 GM/NS 4.5 GM/100 ML IVPB IV SCH ×2 (16:22→23:16)
--- NOTE | 2017-02-20 18:04 | PROGRESS NOTE ---
DATE: 02/20/2017 CURRENT TIME: 1645 hours. CHIEF COMPLAINT: None. VITAL SIGNS: Temperature is 98, T-max was 99.1 over the last 24 hours. Heart rate 70, respirations 21, blood pressure 96/52, 100% O2 on room air. Urine output at least 450 mL. All voidings have not been recorded. DIAGNOSTIC STUDIES: MRI cholangiogram today revealed normal common bile duct and main pancreatic duct. There is no abnormal fluid collections. The gallbladder was absent. There was some ill- defined hypodensities at the inferior liver edge, possibly post-surgical changes. No mass effect. No adenopathy. No cyst or tumors. Deemed a normal pancreatic biliary collecting system. Cultures: Blood cultures times 2, negative at 48 hours. Urine culture negative. White blood cell count today 10.23 (yesterday 16.06). Hemoglobin and hematocrit 11 and 34, platelets 277,000, 79 polys. Sodium was 138, potassium 3.6, BUN/creatinine 10 and 1.1 respectively. Total bilirubin 1.32 (yesterday 1.36). AST 29, today (yesterday 45). ALT today 48 (yesterday 59). Alkaline phosphatase today 160 (yesterday 188). Albumin 2.5. PHYSICAL EXAMINATION: General: The patient is awake and alert. Responds appropriately to questions. Lungs: Clear. Heart: With a regular rate and rhythm. Abdomen: Soft, nontender. Active bowel sounds. Genitourinary: Normal male. Musculoskeletal: Moves all extremities symmetrically. No peripheral edema, clubbing or cyanosis. IMPRESSION: 1. Sepsis of uncertain etiology. His initial admission lactate level was 1.4. He did have evidence for perhaps a very mild cholangitis on a CT of the abdomen, but the MR cholangiogram was normal. He has no evidence for common duct stone. Cultures are negative. White count has returned to normal, liver functions are declining. BUN and creatinine are back to normal, total bilirubin is declining. 2. Have discussed with Dr. Sarbjit Saucedo and Dr. Leonardo Rene. Will discharge him with home IV Zosyn. Will ask the PICC team to see the patient in consultation. Dr. Sarbjit Saucedo will manage his antibiotics. 3. We will plan discharge for tomorrow pending any clinical changes. cc: Chase Rene MD
--- NOTE | 2017-02-20 18:11 | PROGRESS NOTE ---
DATE: 02/20/2017 SUBJECTIVE: He feels much better. Denies abdominal pain. No nausea, no vomiting, no jaundice. Voiding normally. Normal bowel function. OBJECTIVE: Temperature is 99.1 degrees, pulse 80, blood pressure 145/95, oxygen saturation 98% on room air.General: He is alert. HEENT: No scleral icterus. Cardiovascular: Normal rate, regular rhythm. Abdomen: Soft, nontender, nondistended. Integument: Warm, dry, without jaundice. DIAGNOSTIC DATA: I reviewed his labs. White count down at 10, hematocrit is 34, creatinine is 1.1. Bilirubin is downtrending at 1.32, AST 29, ALT is down to 48, alkaline phosphatase down to 160. MRCP shows no evidence of biliary obstruction. CT of chest, abdomen, pelvis showed no acute findings. There is some heterogeneity of the liver and some possible periportal edema, but no fluid collections, no abscess, no free air. ASSESSMENT AND PLAN: A 66-year-old female with dehydration, leukocytosis, and early SIRS picture several weeks after laparoscopic cholecystectomy. His workup thus far has been relatively unrevealing. Dr. Saucedo with Infectious Disease suspects that he has a very low-grade case of cholangitis and I think this is reasonable given his negative workup otherwise. He has improved with IV fluids and IV antibiotics. Dr. Saucedo makes plans for him to transition to a PICC line and home IV antibiotics, and I agree with this as well. Otherwise, I think he is progressing well. He is tolerating a diet, has had normal bowel function. We will continue to follow along. cc: MD Chase Hanson MD
[2017-02-20] MEDS: PROTONIX IV SCH (21:24)
[2017-02-20] MEDS: SODIUM CHLORIDE 0.9% INJ SCH (21:24)
[2017-02-21] MEDS: ZOSYN 4.5 GM/NS 4.5 GM/100 ML IVPB IV SCH ×2 (06:11→15:19)
[2017-02-21 07:21] LABS: INR 1.17; PROTIME 12.4 Seconds (9.2-11.7)
[2017-02-21] MEDS ORDERED: NS 250 ML ONE (08:47)
[2017-02-21] MEDS: KLONOPIN PO SCH (09:35)
[2017-02-21] MEDS: LOVENOX SUBQ SCH (09:37)
--- NOTE | 2017-02-21 13:59 | PROGRESS NOTE ---
DATE: 02/21/2017 SUBJECTIVE: Feels well. No pain. No nausea. Tolerating a diet. OBJECTIVE: No fevers. No tachycardia.Abdomen: Soft, nontender, nondistended. Skin: There is no jaundice on his integument exam or HEENT exam. There is no scleral icterus. LABS: Nothing new today but no growth in his blood cultures and urine cultures no growth. MRCP yesterday showed no filling defects or other acute abnormality. ASSESSMENT/PLAN: 66-year-old male with dehydration, failure to thrive picture after laparoscopic cholecystectomy. Been treated for antibiotics for possible smoldering cholangitis in place for PICC line and home IV antibiotics today. I can see him as needed as an outpatient but otherwise no evidence of bile leak, biliary obstruction or abscess on his workup thus far. cc: MD Chase Hanson MD
[2017-02-21 15:30] VITALS: BP 116/76
--- NOTE | 2017-02-21 15:30 | PROGRESS NOTE ---
DATE: 02/21/2017 PRESENT ILLNESS: The patient is status post laparoscopic cholecystectomy. I think he has a low- grade cholangitis. MEDICATIONS: The patient currently is on Zosyn. The dose has been changed to 4.5 g IV every 8 hours in order to facilitate treatment with the antibiotic when the patient is discharged home. PHYSICAL EXAMINATION: Vital Signs: Temperature is 97.7, pulse 78, respirations 20, blood pressure 118/66. Generally: This is a fairly healthy-appearing, elderly gentleman. He is in no acute distress. Lungs: Clear to auscultation. Cardiovascular: Regular heart rate. Abdomen: Soft and nontender. Extremities: In the patient's arm, a PICC is present. The site is not erythematous or swollen. Neurologic: Patient is alert. He can move his extremities. There is no tremor. LAB AND X-RAY: Patient had an MRI of the abdomen that showed a normal pancreatobiliary collecting system. Did not have a CBC or BMP this morning. ASSESSMENT AND PLAN: The patient appears to have a low-grade cholangitis following his surgery. The plan is to continue Zosyn for 2 more weeks. Through his PICC. I will be seeing the patient at the end of the 2 weeks and if everything is going well, I will remove the patient's PICC. COMORBIDITY: He had recent laparoscopic surgery. cc: MD Chase Yeh MD
--- NOTE | 2017-02-21 15:35 | PROGRESS NOTE ---
DATE: 02/21/2017 CURRENT TIME: 1445 hours. CHIEF COMPLAINT: None. Ready to go home. VITAL SIGNS: Temperature is 97.7 degrees, pulse 78, respirations 20, blood pressure 118/66, O2 saturation 100% on room air. LABORATORY DATA: There is no current laboratory data for today. PHYSICAL EXAM: Patient is awake and alert. Family is at bedside. PICC has been placed earlier this morning. Arrangements and education has been done for home Zosyn administration. The patient will be discharged as stated. cc: Chase Rene MD
--- NOTE | 2017-02-21 19:29 | DISCHARGE SUMMARY ---
ADMISSION DATE: 02/18/2017 DISCHARGE DATE: 02/21/2017 PRIMARY DISCHARGE DIAGNOSIS: Sepsis. OTHER DIAGNOSES: 1. Cholangitis. 2. Dehydration. 3. Elevated liver enzymes. 4. Leukocytosis. PRIMARY PROCEDURE PERFORMED: Intravenous antibiotic therapy. OTHER PROCEDURES: 1. CT of the chest, abdomen, and pelvis. 2. MRCP. 3. IV antibiotic therapy. DISPOSITION: 1. The patient will be discharged home in good condition. 2. He will be placed on Zosyn 3 times a day per Dr. Sarbjit Saucedo. He will follow up with Dr. Sarbjit Saucedo in 2 weeks. 3. He will see me in 1 week. 4. His Zosyn dose will be 4.5 mg IV q.8 hours. Family has been instructed on its administration. His daughter is a nurse as well. LABORATORY DATA: His initial white blood cell count on admission was 16.06, at time of discharge 10.23. At time of discharge his sodium was 138, potassium was 3.6, BUN and creatinine was 10 and 1.1 respectively. Liver enzymes at time of discharge: Total bilirubin was 1.32, alkaline phosphatase was 160, ALT 48, AST 29, albumin 2.5. All cultures were negative. MRCP showed no biliary obstruction. No complicating features. CT of the chest showed no pneumonia etc. CT of the abdomen showed what appeared to be perhaps some peribiliary edema with some heterogeneity of the liver parenchyma possibly representing cholangitis. Echocardiogram showed no valvular abnormalities. He did have slight to moderate dilatation of the left atrium and ventricle. CT of the pelvis was negative for abscess, etc. HOSPITAL COURSE: The patient was admitted and cultured. He was placed initially on IV Rocephin and Zosyn. He was subsequently decreased to Zosyn. Dr. Sarbjit Saucedo and Dr. Leonardo Rene saw the patient in consultation. His condition quickly improved and he regained his appetite. Decision was made to treat with home antibiotic therapy via PICC line. PICC line was placed without difficulty. All these facts were discussed with family. Patient was discharged in good condition. cc: Chase Rene MD
== END 2017-02-21 17:41 | disposition home health service (06) ==
LOC: DIRADM 18:23 → 3N 20:05
PROVIDERS: ADMIT Family Medicine; ATTEND Family Medicine